=== PATIENT | female | born 1955 | race American Indian/Alaskan Native ===

== ENCOUNTER 2020-06-24 12:38 | Outpatient (CLI) | payer OTHER | END 2020-06-24 12:39 | disposition home or self-care (01) | LOC: MAMMO 12:38 | PROVIDERS: ATTEND Internal Medicine | DX: Z12.31 Encounter for screening mammogram for malignant neoplasm of breast (principal) | CPT/HCPCS: 77067 ==

== ENCOUNTER 2020-09-19 12:21 | Outpatient (CLI) | payer OTHER ==
--- NOTE | 2020-09-19 13:14 | Mammography Report ---
DIGITAL DIAGNOSTIC MAMMOGRAM WITH CAD CONVENTIONAL, 09/19/2020 CLINICAL INFORMATION / INDICATION: Patient presents as a callback from screening mammogram for furthe r evaluation of right breast calcifications. INCONCLUSIVE MAMMO TECHNIQUE: Digital right mammographic imaging was performed. Magnification views were obtained. This examination was interpreted with the benefit of Computer-aided Detection analysis. COMPARISON: Prior mammogram 06/24/2020 FINDINGS: Breast Density: There are scattered areas of fibroglandular density. As seen on recent screening mammogram, there is a 9 mm group of coarse heterogeneous calcifications i n the 11:00 position of the right breast, middle depth. IMPRESSION: 1. A group of coarse heterogeneous calcifications in the right breast is considered suspicious for ma lignancy, stereotactic biopsy is recommended. Follow up recommendation: Biopsy BI-RADS Category 4: Suspicious for Malignancy. A "normal" or negative report should not discourage follow up or biopsy of a clinically significant f inding. A written summary of these findings will be mailed to the patient. The patient will be entered into a mammography reporting system which will generate a reminder letter for the patient's next appointmen t at the appropriate interval. According to the [employer], yearly mammograms are recommended starting at age 40 and continuing as long as a woman is in good health. Breast MRI is recommended for women with an adilson roximately 20-25% or greater lifetime risk of breast cancer, including women with a strong family his tory of breast or ovarian cancer and women who have been treated for Hodgkin's disease. Signer Name: Violeta Maldonado MD Signed: 09/19/2020 1:10 PM Workstation Name: [id number]
== END 2020-09-19 12:22 | disposition home or self-care (01) ==
LOC: MAMMO 12:21
PROVIDERS: ATTEND Internal Medicine
DX: R92.2 Inconclusive mammogram (principal)

== ENCOUNTER 2020-11-01 11:34 | Outpatient (CLI) | payer OTHER ==
--- NOTE | 2020-11-01 16:22 | Mammography Report ---
STEREOTACTIC GUIDED RIGHT BREAST BIOPSY, 11/01/2020 CLINICAL INFORMATION / INDICATION: Abnormal right mammogram.. COMPARISON: Prior mammogram 09/19/2020, 06/24/2020 PROCEDURE: Risks, benefits, and indications to the procedure were discussed with the patient in detail, includin g bleeding, infection, hematoma formation, and inadequate tissue sampling. The patient agreed to proc eed with both verbal and written consent. A timeout procedure was performed with 2 patient identifier s. Targeted stereotactic images were obtained of the area of interest. The targeted area was identified and coordinates were determined. The breast was cleansed and prepped in the usual sterile fashion. Li docaine 1% with and without epinephrine was used for local anesthesia. Under direct stereotatic lul nce, an 8 gauge Mammotome biopsy device was advanced to the correct position and multiple vacuum-assi sted core samples were obtained. Postbiopsy images confirm satisfactory tissue sampling within the bi opsy cavity. Specimen radiograph confirms several calcifications within the specimen. A biopsy marker was then deployed at the biopsy site. The biopsy device was removed. Hemostasis was achieved with ma nual pressure. A sterile pressure dressing was applied to the skin. Post-biopsy mammogram was obtaine d. The patient tolerated the procedure without difficulty. No complications were encountered. Postbiopsy instructions were discussed with the patient and given in writing. IMPRESSION: 1. Technically successful stereotactic guided right breast biopsy. Biopsy results are pending and will be reported in an addendum. DIGITAL DIAGNOSTIC MAMMOGRAM WITH CAD , 11/01/2020 CLINICAL INFORMATION / INDICATION: Postprocedure right mammogram following stereotactic biopsy TECHNIQUE: Digital right mammographic imaging was performed. This examination was interpreted with the benefit of Computer-aided Detection analysis. COMPARISON: Stereotactic biopsy performed earlier today as well as prior mammogram 09/19/2020 FINDINGS: Breast Density: There are scattered areas of fibroglandular density. Postprocedure mammogram demonstrates the majority of the calcifications in question to have been succ essfully sampled/removed. There are a few remaining calcifications. The biopsy clip is in the expecte d location within the area of interest. IMPRESSION: Successful stereotactic biopsy for grouped calcifications in the right breast at approxim ately 9:00. Follow up recommendation: Awaiting pathology results Post biopsy imaging. A "normal" or negative report should not discourage follow up or biopsy of a clinically significant f inding. A written summary of these findings will be mailed to the patient. The patient will be entered into a mammography reporting system which will generate a reminder letter for the patient's next appointmen t at the appropriate interval. According to the [employer], yearly mammograms are recommended starting at age 40 and continuing as long as a woman is in good health. Breast MRI is recommended for women with an adilson roximately 20-25% or greater lifetime risk of breast cancer, including women with a strong family his tory of breast or ovarian cancer and women who have been treated for Hodgkin's disease. Signer Name: Izabel Sanon MD Signed: 11/01/2020 4:18 PM Workstation Name: [id number]
== END 2020-11-01 11:35 | disposition home or self-care (01) ==
LOC: SPVWC 11:34
PROVIDERS: ATTEND Surgery
DX: R92.8 Other abnormal and inconclusive findings on diagnostic imaging of breast (principal); R92.1 Mammographic calcification found on diagnostic imaging of breast
CPT/HCPCS: 19081; 77065; 88305; A4648

== ENCOUNTER 2021-01-26 12:18 | Outpatient (CLI) | payer OTHER ==
[2021-01-26 13:05] LABS: Basophils # (Auto) 0.1 K/mm3 (0.0-0.1); Basophils % (Auto) 1.5 % (0.0-1.8); Eosinophils # (Auto) 0.1 K/mm3 (0.0-0.4); Eosinophils % (Auto) 3.3 % (0.0-4.3); Hemoglobin 13.6 gm/dl (10.1-14.3); Lymphocytes % (Auto) 25.5 % (13.4-35.0); Mean Corpuscular HGB Conc 32 % (30-34); Mean Corpuscular Volume 88 fl (79-97); Monocytes # (Auto) 0.5 K/mm3 (0.0-0.8); Monocytes % (Auto) 14.3 % (0.0-7.3); Platelet Count 161 K/mm3 (140-440); Red Blood Count 4.89 M/mm3 (3.65-5.03); Red Cell Distribution Width 15.2 % (13.2-15.2)
[2021-01-26 13:09] LABS: Alanine Aminotransferase 22 units/L (7-56); Albumin 4.6 g/dL (3.9-5); Blood Urea Nitrogen 13 mg/dL (7-17); Calcium 9.8 mg/dL (8.4-10.2); HDL Cholesterol 59 mg/dL (40-59); Hemolysis Index 5; LDL Cholesterol,Direct 129 mg/dL (50-130)
[2021-01-26 13:16] LABS: BUN/Creatinine Ratio 26
--- NOTE | 2021-01-26 13:51 | XRay Report ---
Right knee 4 views INDICATION: Knee pain FINDINGS: There is tricompartmental degenerative osteoarthrosis. Significant joint space narrowing is seen throughout. Joint effusion is identified. Signer Name: Sinan Caceres MD Signed: 01/26/2021 1:46 PM Workstation Name: [id number]
== END 2021-01-26 12:19 | disposition home or self-care (01) ==
LOC: XRAY 12:18
PROVIDERS: ATTEND Internal Medicine
DX: Z00.00 Encounter for general adult medical examination without abnormal findings (principal); Z13.220 Encounter for screening for lipoid disorders; Z13.1 Encounter for screening for diabetes mellitus; E55.9 Vitamin D deficiency, unspecified; M17.11 Unilateral primary osteoarthritis, right knee; M25.461 Effusion, right knee; I10 Essential (primary) hypertension
CPT/HCPCS: 36415; 80053; 80061; 82306; 83036; 84443; 85025

== ENCOUNTER 2021-04-20 05:41 | Observation (INO) | payer OTHER ==
[2021-04-20] MEDS ORDERED: LACTATED RINGERS 1,000 ML ONE ×2 (06:20→09:52)
[2021-04-20] MEDS: LACTATED RINGERS 1,000 ML IV SCH ×2 (06:50→17:39)
[2021-04-20] MEDS ORDERED: NEOMY 40 MG/POLYMYXIN B 200,000 UNITS/ML (GU) AMPULE IR ONE ×2 (07:08→08:45)
[2021-04-20] MEDS ORDERED: LIDOCAINE MPF (2%) 20 MG/1 ML VIAL 5 ML ONE (07:19)
[2021-04-20] MEDS ORDERED: ROCURONIUM 50 MG/5 ML INJ IV ONE (07:19)
[2021-04-20] MEDS ORDERED: propofoL 200 MG/20 ML VIAL IV ONE (07:20)
[2021-04-20] MEDS ORDERED: fentaNYL 100 MCG/2 ML INJ ONE ×2 (07:20→07:37)
[2021-04-20] MEDS ORDERED: SODIUM CHLORIDE 0.9% 100 ML ONE ×2 (07:23→09:28)
[2021-04-20] MEDS ORDERED: TRANEXAMIC ACID 1,000 MG/10 ML ONE (07:23)
[2021-04-20] MEDS ORDERED: BUPIVACAINE/PF (0.25%) 2.5 MG/ML 30 ML VIAL INFILTRATI ONE (07:29)
[2021-04-20] MEDS ORDERED: dexAMETHasone 4 MG/ML VIAL ONE (07:30)
[2021-04-20] MEDS ORDERED: LIDOCAINE (1%) 10 MG/1 ML VIAL 20 ML MDV ONE (07:30)
[2021-04-20] MEDS ORDERED: MIDAZOLAM 2 MG/2 ML INJ ONE (07:37)
--- NOTE | 2021-04-20 07:43 | Anesthesia Day of Surgery ---
Anesthesia Day of Surgery - Day of Surgery Patient Examined: Yes Patient H&P Reviewed: Yes Patient is NPO: Yes
[2021-04-20] MEDS ORDERED: HYDROmorphone 1 MG/1 ML INJ IV PRN ×2 (08:00)
[2021-04-20] MEDS ORDERED: ceFAZolin/Water 2 GM/20 ML 2 GM/20 ML SYRINGE IV NR (08:00)
[2021-04-20] MEDS ORDERED: ONDANSETRON 4 MG/2 ML INJ IV PRN (08:00)
[2021-04-20] MEDS ORDERED: ONDANSETRON 4 MG/2 ML INJ ONE (08:19)
[2021-04-20] MEDS ORDERED: dexAMETHasone 20 MG/5 ML VIAL ONE (08:20)
[2021-04-20] MEDS ORDERED: SODIUM CHLORIDE 0.9% IRR 1,500 ML BOTTLE IR ONE (08:45)
[2021-04-20] MEDS ORDERED: SODIUM CHLORIDE 0.9% IRRIG SOLN 2000 ML IR ONE (08:45)
[2021-04-20] MEDS ORDERED: WATER FOR IRRIG STERILE 1,500 ML BOTTLE IR ONE (08:45)
[2021-04-20] MEDS ORDERED: HYDROmorphone 1 MG/1 ML INJ ONE (09:24)
[2021-04-20] MEDS ORDERED: KETOROLAC 30 MG/1 ML INJ ONE (09:27)
[2021-04-20] MEDS ORDERED: BUPIVACAINE/PF (0.5%) 5 MG/1 ML 10 ML VIAL INFILTRATI ONE ×2 (09:27→09:46)
[2021-04-20] MEDS ORDERED: SODIUM CHLORIDE 0.9% 50 ML ONE ×2 (09:28)
[2021-04-20] MEDS ORDERED: MORPHINE 10 MG/1 ML INJ ONE (09:28)
[2021-04-20] MEDS ORDERED: NEOSTIGMINE 10MG/10 ML INJ MDV ONE (09:44)
[2021-04-20] MEDS ORDERED: GLYCOPYRROLATE 0.4 MG/2 ML INJ ONE (09:44)
[2021-04-20] MEDS ORDERED: MORPHINE 10 MG/1 ML INJ IM ONE (09:47)
[2021-04-20] MEDS ORDERED: KETOROLAC 30 MG/1 ML INJ IV ONE (09:47)
[2021-04-20] MEDS ORDERED: ZOLPIDEM 5 MG TAB PO PRN (10:13)
[2021-04-20] MEDS ORDERED: MORPHINE 2 MG/1 ML INJ IV PRN (10:13)
--- NOTE | 2021-04-20 10:27 | Procedure Note ---
Date of procedure: 04/20/21 Pre-op diagnosis: Severe arthritis right knee Post-op diagnosis: same Procedure: [Right] total knee replacement Procedure The patient was brought to the OR after being given a obturator nerve block and preoperative holding she was placed on the OR table supine position following induction elevation of anesthesia the patient is [right] lower extremity was prepped and draped in the usual sterile manner. A timeout procedure was done to identify the patient in the correct operative site. The leg was exsanguinated followed by inflation of the pneumatic tourniquet to 300 mmHg. A midline incision was made over the patella was taken down distally towards the tibial tubercle next the medial retinaculum was incised and the patella was inverted examination of the patient's knee joint revealed typical osteoarthritic changes with large bone spurs noted primarily in the medial compartment both the femoral and tibial's articular surfaces exhibited bare bone and large peripheral osteophytes next a large drill bit was used to enter the medullary canal this was followed by placement of the distal femoral cutting Jig the distal femur was resected approximately 8-9 mm of bone was removed at this time. Attention was turned to the patient's proximal tibia using the external alignment guide the bone was cut using the medial surface as the low point of care was taken to protect the medial collateral ligaments, the tibial articular surface was then sized and a #3 tibial based ray was selected this was followed by placement of the fixation hole or keel into the proximal tibial intermedullary canal. Attention was turned to the distal femur and using a 4 and 1 cutting block a #3 component was selected AP anterior and posterior as well as Shamfer cuts were made. A #3 tibial and #3 femoral component as well as 10mm polyethylene spacer was placed and the knee was then taken to a range of motion she appeared to have stability in both the flexion and extension FOLLOWING this the trial components were removed the knee was then copiously irrigated any remaining soft tissue and bony debris were removed at this time next the cement was next and following this the tibial components were inserted beginning with the based ray followed by the polyethylene insert The femoral component was added the excess were removed the knee was held in extension until the cement hardened following hardening of cement the knee was then brought back into of flexion any remaining soft tissue and bony debris were removed at this time. The wound again was irrigated and was closed in a standard routine fashion. Dressings were applied the patient tolerated the procedure there were no complications she was then taken to post anesthesia recovery Anesthesia: MAC, regional Surgeon: MOHIT ANTUNEZ ([place], 1st assist) Estimated blood loss: 50-100ml Pathology: list (Portions of the distal femur and proximal tibia sent to pathology) Specimen disposition: to lab Condition: stable Disposition: PACU
--- NOTE | 2021-04-20 13:39 | Post Anesthesia Evaluation ---
- Post Anesthesia Evaluation Patient Participated: Yes Airway Patent: Yes Stable Respiratory Function: Yes Nausea/Vomiting: No Temp > 96.8F: Yes Pain Manageable: Yes Adequeate Hydration: Yes Anesthesia Complications: No Block Receding Appropriately: Yes Patient on Ventilator: No
[2021-04-21] MEDS: MORPHINE 4 MG/1 ML INJ IV PRN ×2 (01:15→11:14)
[2021-04-21] MEDS: LACTATED RINGERS 1,000 ML IV SCH (01:16)
--- OUTSIDE RECORDS SUMMARY | 2021-04-21 06:11 | External Medical Summary ---
:1955 Author Organization [facility], [facility] Address [address] [place] [address] Care Team Providers Name Role Phone Arun Unavailable [phone] PROBLEMS Type Condition ICD9-CM [id number] Onset Condition W/U Status Risk SNOM ED Notes Code Code Dates Status Code Problem Encounter for Z12.39 Active confirmed 194492 008 other screening for malignant neoplasm of breast Problem Essential I10 Active confirmed 43283162 (primary) hypertension Problem Unilateral M17.11 Active confirmed 569116881 primary osteoarthriti s, right knee Problem Hyperlipidemi E78.5 Active confirmed 148334 04 a, unspecified Problem Type 2 E11.65 Active confirmed 5066481255 diabetes 37059 mellitus with hyperglycemia Problem Bilateral M17.0 Active confirmed 042662980 primary osteoarthriti s of knee Problem Other R92.8 Active confirmed 454051897 abnormal and inconclusive findings on diagnostic imaging of breast Problem 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 078391 9149 of right 5381679 breast Problem Vitamin D E55.9 Active confirmed 53109624 deficiency, unspecified ALLERGIES Allergen (clinical Drug/Non Drug Reaction Allergy Type Onset Date S tatus drug ingredient) Allergy documented on EMR Poison Henny rash Non Drug Allergy Active ENCOUNTERS from 1955 to 2021-04-20 Encounter Location Date Provider Diagnosis [facility] [address] [place], Darin Rosenbaum teral primary [address] level of osteoart hritis, [place] knee M17.1 1 and Bilateral [id number] primary osteoar thritis of knee M17.0 IMMUNIZATIONS No Information SOCIAL HISTORY Tobacco Use: Social History Observation Description Date Details (start date - stop date) Never Smoker Sex Assigned At : Social History Observation Description Sex Assigned At Unknown Smoking Question Answer Notes Are you a: never smoker REASON FOR REFERRAL from 1955 to 2021-04-20 Reason Right TKR Diagnosis 1 Unilateral primary osteoarth ritis, right knee (M17.11) Diagnosis 2 Pain in right knee (M25.561) Diagnosis 3 Essential (primary) hyperten karyn (I10) Diagnosis 4 Bilateral primary osteoarthr itis of knee (M17.0) Referral Organization [facility] Referring Provider First Name Darin Referring Provider Last Name Arun Referring Provider Specialty Orthopedic Surgery Referred Provider [facility], - Referral Priority Routine VITAL SIGNS No information MEDICATIONS Medication SIG (Take, Route, Notes Start Date End Date Status Frequency, Duration) Walker - as directed Mar, Active Biotin Active amLODIPine Besylate 10 MG 1 tablet Orally Once a Active day for 90 days Vitamin C Active PROCEDURES No Information RESULTS No Results REASON FOR VISIT Right knee pain and stiffness MEDICAL (GENERAL) HISTORY Type Description Date Medical History Essential (primary) hypertension Medical History Encounter for other screening for malign ant neoplasm of breast Medical History Pain in right knee Medical History Heart Murmur Medical History Hernia Surgical History Hernia Repair- [facility] 1974 Surgical History Embolization of Fibroids - Dr. Tejada/Pi amadeo Surgical History Right Breast Biopsy 11/01/2020 Hospitalization History See Above Goals Section No Information Health Concerns No Information MEDICAL EQUIPMENT No Information MENTAL STATUS No Information FUNCTIONAL STATUS No Information ASSESSMENTS Encounter Date Diagnosis Assessment Notes Treatment Notes Treatm ent Clinical Notes Mar, Unilateral primary Stressed the need osteoarthritis, for preoperative as right knee (ICD-10 - well as M17.11) postoperative range of motion and strengthening exercises for both lower extremities Mar, Bilateral primary Discussed treatment osteoarthritis of options with the knee (ICD-10 - patient based on her M17.0) history physical examination and review of the x-rays showing significant osteoarthritis in both knees but since the right knee is more painful patient wishes to proceed with a right total knee replacement PLAN OF TREATMENT Treatment Notes Assessment Notes Clinical Notes Unilateral primary osteoarthritis, Stressed the need for pre operative right knee as well as postoperative range of motion and strengthening exercises for both lower extremities Bilateral primary osteoarthritis of Discussed treatment opti ons with knee the patient based on her history physical examination and review of the x-rays showing significant osteoarthritis in both knees but since the right knee is more painful patient wishes to proceed with a right total knee replacement Referrals Referral Date Details Right TKR Next Appt Details Provider Name:Darin Dias, 2021-04-20 11:00:00 AM, [address] [place], [address], Provider Name:Noé Nehemias, 05-05 08:45:00 AM, [address], [address], [place], [address], Insurance Providers Payer Name Payer Payer Insured Patient Coverage Coverage Subscriber Group Address Phone Name Relationship Start End Date Number Nu mber to Insured Date TEZ [phone] ADRIENNE [id number] [facility] [phone] JEAN DING [address] [place] [phone] Plan
[2021-04-21] MEDS: KETOROLAC 30 MG/1 ML INJ IV PRN (10:34)
[2021-04-21] MEDS: ENOXAPARIN 40 MG/0.4 ML INJ SUB-Q SCH (10:34)
--- NOTE | 2021-04-21 14:40 | XRay Report ---
RIGHT KNEE 2 VIEW(S) INDICATION / CLINICAL INFORMATION: post op evaluation COMPARISON: None available. FINDINGS: Knee arthroplasty has been placed with satisfactory postoperative radiographic appearance. Please note that the exam is incorrectly labeled as left knee. This was confirmed with the ordering s urgeon. Signer Name: Heladio Ellison MD Signed: 04/21/2021 2:35 PM Workstation Name: [id number]
[2021-04-22] MEDS: KETOROLAC 30 MG/1 ML INJ IV PRN ×2 (03:06→10:00)
[2021-04-22] MEDS: ENOXAPARIN 40 MG/0.4 ML INJ SUB-Q SCH (10:00)
[2021-04-22 12:18] VITALS: BP 110/46
--- NOTE | 2021-04-22 12:44 | Progress Note ---
Assessment and Plan continue PT and observation, will dc soon Subjective Date of service: 04/21/21 Interval history: no major c/o's noted, wants to go home... Objective Vital signs: Vital Signs - 12hr 04/22/21 04/22/21 04/22/21 02:31 04:27 11:46 Temperature 98.3 F 98.6 F Pulse Rate 109 H 98 H Respiratory 18 22 Rate Blood Pressure 139/58 110/46 O2 Sat by Pulse 97 92 98 Oximetry 04/22/21 12:06 Temperature Pulse Rate Respiratory Rate Blood Pressure O2 Sat by Pulse 98 Oximetry Incision: clean and dry Weight bearing status: as tolerated
== END 2021-04-22 18:25 | disposition home health service (06) ==
LOC: OR 05:41 → INTOOBSV 10:13 → 3A 10:13 → EDSTATUS 11:00 → 3A 14:34
PROVIDERS: ADMIT Orthopaedic Surgery; ATTEND Orthopaedic Surgery
DX: M17.11 Unilateral primary osteoarthritis, right knee (principal); Z20.822 Contact with and (suspected) exposure to COVID-19; I10 Essential (primary) hypertension; R01.1 Cardiac murmur, unspecified; M25.561 Pain in right knee; M17.12 Unilateral primary osteoarthritis, left knee; Z85.3 Personal history of malignant neoplasm of breast; Z79.899 Other long term (current) drug therapy; Z98.890 Other specified postprocedural states
CPT/HCPCS: 27447; 64447; 73560; 88304; 88311; 97110; 97116; 97162; 97530; 97535; C1713; C1776; G0378; J0690; J1100; J1170; J1650; J1815; J1885; J2250; J2270; J2405; J2704; J2710; J3010; J3490; J7120; U0003; 64450; 88309

== ENCOUNTER 2021-05-12 10:42 | Outpatient (CLI) | payer OTHER ==
[2021-05-12 11:46] LABS: Chol/HDL Ratio 2.98 %
== END 2021-05-12 10:43 | disposition home or self-care (01) ==
LOC: LAB 10:42
PROVIDERS: ATTEND Internal Medicine
DX: E11.65 Type 2 diabetes mellitus with hyperglycemia (principal); E78.5 Hyperlipidemia, unspecified; E55.9 Vitamin D deficiency, unspecified
CPT/HCPCS: 36415; 80061; 82306; 83036

== ENCOUNTER 2021-07-31 09:10 | Outpatient (CLI) | payer OTHER ==
--- NOTE | 2021-07-31 10:53 | XRay Report ---
BILATERAL KNEES STANDING 3 VIEW INDICATION: M17.0 BILATERAL PRIMARY OSTEOARTHRITIS OF KNEE. COMPARISON: Right knee films 04/21/2021. Left knee films 02/14/2021 IMPRESSION: Right knee arthroplasty is again noted and appears well applied and unchanged since 04/21. No evidence for loosening or infection. There are severe tricompartmental osteoarthritic feldman ges in the left knee which appear significantly advanced since the left knee films dated 02/14/2021. The medial compartment appears most affected with near complete loss of joint space. No significant j oint effusion is appreciated in either knee. No acute osseous abnormality or bone lesion. Signer Name: Terry Lyle Jr, MD Signed: 07/31/2021 10:49 AM Workstation Name: [id number]
== END 2021-07-31 09:11 | disposition home or self-care (01) ==
LOC: XRAY 09:10
PROVIDERS: ATTEND Orthopaedic Surgery
DX: M17.12 Unilateral primary osteoarthritis, left knee (principal); Z96.651 Presence of right artificial knee joint
CPT/HCPCS: 73565

== ENCOUNTER 2021-09-15 11:37 | Outpatient (CLI) | payer OTHER ==
[2021-09-15 12:29] LABS: Chol/HDL Ratio 3.1 %
== END 2021-09-15 11:38 | disposition home or self-care (01) ==
LOC: LAB 11:37
PROVIDERS: ATTEND Internal Medicine
DX: E11.65 Type 2 diabetes mellitus with hyperglycemia (principal); E78.5 Hyperlipidemia, unspecified
CPT/HCPCS: 36415; 80061; 83036